=== PATIENT | female | born 1990 | race Caucasian/White ===

== ENCOUNTER 2018-02-15 21:37 | Emergency (ER) | payer OTHER ==
[2018-02-15 22:38] LABS: BASOPHILS # (AUTO) 0.1 10^3/uL (0.0-0.1); BASOPHILS % (AUTO) 0.5 %; EOSINOPHILS # (AUTO) 0.2 10^3/uL (0.0-0.7); EOSINOPHILS % (AUTO) 1.7 %; HGB - HEMOGLOBIN 13.6 g/dL (12.0-16.0); LYMPHOCYTES # (AUTO) 3.6 10^3/uL (1.5-3.5); LYMPHOCYTES % (AUTO) 36.7 %; MEAN CORPUSCULAR HEMOGLOBIN 28.2 pg (27.0-31.0); MEAN CORPUSCULAR HGB CONC 32.6 g/dL (32.0-36.0); MEAN CORPUSCULAR VOLUME 86.7 fL (81.0-99.0); MEAN PLATELET VOLUME 7.2 fL (7.9-10.8); MONOCYTES # (AUTO) 0.8 10^3/uL (0.0-1.0); NEUTROPHILS # (AUTO) 5.3 10^3/uL (1.5-6.6); NEUTROPHILS % (AUTO) 53.1 %; PLT - PLATELET COUNT 251 10^3/uL (130-450); RED BLOOD COUNT 4.81 10^6/uL (4.20-5.40); RED CELL DISTRIBUTION WIDTH 13.1 % (12.0-15.0); WHITE BLOOD COUNT 9.9 x10^3/uL (4.8-10.8)
[2018-02-15 22:44] LABS: BILIRUBIN,URINE NEGATIVE (NEGATIVE); GLUCOSE, URINE (UA) NEGATIVE (NEGATIVE); KETONES,URINE (UA) NEGATIVE (NEGATIVE); LEUKOCYTE ESTERASE, URINE NEGATIVE (NEGATIVE); NITRITE,URINE NEGATIVE (NEGATIVE); OCCULT BLOOD,URINE LARGE (NEGATIVE); PROTEIN,URINE NEGATIVE (NEGATIVE); UROBILINOGEN,URINE 0.2 (NORMAL) E.U./dL (NORMAL)
[2018-02-15 22:45] LABS: CLARITY,URINE HAZY (CLEAR)
[2018-02-15 22:50] LABS: BACTERIA,URINE Rare /HPF (None Seen); RBC,URINE TNTC /HPF (0-5); SQUAMOUS EPITHELIAL CELL,UR RARE Squamous (<= Few)
[2018-02-15 22:59] LABS: ALBUMIN 4.2 g/dL (3.2-5.5); ALBUMIN/GLOBULIN RATIO 1.2 (1.0-2.2); BILIRUBIN,TOTAL 0.9 mg/dL (0.2-1.0); CALCIUM 9.3 mg/dL (8.5-10.3); CREATININE 0.7 mg/dL (0.4-1.0); TOTAL PROTEIN 7.6 g/dL (6.7-8.2)
--- NOTE | 2018-02-16 00:10 | Ultrasound Preliminary Report ---
Exam: US OB FIRST TRIMESTER IMPRESSION: 1. Cystic structure within the lower uterine segment without pole or yolk sac. This is suspicio us for a low-lying gestational sac versus in progress. 2. Normal ovaries. [facility] SITE ID: [id number]
--- NOTE | 2018-02-16 00:11 | Ultrasound Report ---
EXAM: FIRST TRIMESTER OBSTETRIC ULTRASOUND (Less than 11 weeks) EXAM DATE: 02/15/2018 10:52 PM. CLINICAL HISTORY: Preg vag bleeding. LMP: 12/15/2017. COMPARISONS: None. TECHNIQUE: Transabdominal ultrasound examination with static image documentation. CLINICAL DATES: EGA 8 weeks 6 days with LISA 09/21/2018 based on LMP/prior ultrasound/other. ASSESSMENT: Gestational Sac: Cystic structure within the lower uterine segment with a mean diameter of 10.6 mm co rresponding to 5 weeks 1 day and presumably representing a gestational sac. . No pole or yolk sac is seen. MATERNAL STRUCTURES: Uterus: Anteverted. Unremarkable. Cervix: Closed. Right Ovary/Adnexa: Unremarkable. The ovary measures 2.2 x 1.3 x 2.5 cm, volume cc. Left Ovary/Adnexa: Unremarkable. The ovary measures 3.1 x 2 x 2.5 cm, volume cc. Free Fluid: None. Other: None. IMPRESSION: 1. Cystic structure within the lower uterine segment without pole or yolk sac. This is suspicio us for a low-lying gestational sac versus in progress. 2. Normal ovaries. [facility] Referring Provider Line: [phone] SITE ID: [id number]
--- NOTE | 2018-02-16 00:40 | ED Physician Documentation ---
PD HPI FEMALE - Stated complaint Stated Complaint: FEMALE /8 WK OB - Chief complaint Chief Complaint: Abd Pain - History obtained from History obtained from: Patient, Family - History of Present Illness Timing - onset: Yesterday Timing - details: Gradual onset, Still present Associated symptoms: Pelvic pain, Vaginal bleeding Contributing factors: [employer] History: G (1), P (0) Similar symptoms before: Has not had sx before Recently seen: Not recently seen - Additional information Additional information: patient is a 27 year old female approximately 8 weeks by dates who is presenting to the emergency department for vaginal bleeding and pelvic pain. patient states that the symptoms started yesterday with some spotting. Patient talked to her doctor who had her get a blood draw to check the beta hcg. Patient states that tonight the bleeding became worse so she came to the emergency department for evaluation. Review of Systems Ten Systems: 10 systems reviewed and negative GI: denies: Nausea, Vomiting : reports: Vaginal bleeding. denies: Dysuria, Frequency PD PAST MEDICAL HISTORY - Past Medical History Past Medical History: No - Past Surgical History Past Surgical History: Yes Ortho: ACL reconstruction, Spine surgery HEENT: Myringotomy (tubes) - Present Medications Home Medications: Ambulatory Orders Medication Instructions Recorded Confirmed Cyclobenzaprine [Flexeril] 10 mg PO TID PRN #20 tablet 04/16/16 Ethinyl Estradiol/Drospirenone 04/16/16 [Loryna 3 mg-0.02 mg Tablet] Hydrocodone/Acetaminophen 1 - 2 each PO Q6H PRN #14 tablet 04/16/16 [Hydrocodon-Acetaminophen 5-325] - Allergies Allergies/Adverse Reactions: Allergies Allergy/AdvReac Type Severity Reaction Status Date / Time amoxicillin trihydrate * Allergy Rash Verified 02/15/18 21:42 [From Augmentin] potassium clavulanate * Allergy Rash Verified 02/15/18 21:42 [From Augmentin] Sulfa (Sulfonamide Allergy Rash Verified 02/15/18 21:42 Antibiotics) - Social History Does the pt smoke?: No Smoking Status: Never smoker Does the pt drink ETOH?: Yes Does the pt have substance abuse?: No - Immunizations Immunizations are current?: Yes - POLST Patient has POLST: No PD ED PE NORMAL - Vitals Vital signs reviewed: Yes - General General: Alert and oriented X 3, Well developed/nourished - HEENT HEENT: Atraumatic, PERRL - Cardiac Cardiac: RRR - Respiratory Respiratory: No respiratory distress - Abdomen Abdomen: Soft - Derm Derm: Normal color, Warm and dry, No rash - Extremities Extremities: No deformity - Neuro Neuro: Alert and oriented X 3 Eye Opening: Spontaneous Motor: Obeys Commands Verbal: Oriented GCS Score: 15 Results - Vitals Vitals: Vital Signs - 24 hr 02/15/18 02/15/18 02/16/18 21:38 23:17 00:40 Temperature 36.8 C 36.8 C Heart Rate 106 H 82 89 Respiratory 18 18 16 Rate Blood Pressure 136/84 H 125/79 121/69 O2 Saturation 100 100 99 Oxygen O2 Source Room air - Labs Labs: Laboratory Tests 02/15/18 02/15/18 02/15/18 22:18 22:21 22:21 WBC 9.9 RBC 4.81 Hgb 13.6 Hct 41.7 MCV 86.7 MCH 28.2 MCHC 32.6 RDW 13.1 Plt Count 251 MPV 7.2 L Neut # 5.3 Lymph # 3.6 H [place] # 0.8 Eos # 0.2 Baso # 0.1 Absolute Nucleated RBC 0.00 Nucleated RBC % 0.0 Sodium 135 Potassium 3.3 L Chloride 101 Carbon Dioxide 26 Anion Gap 8.0 BUN 14 Creatinine 0.7 Estimated GFR (MDRD) 100 Glucose 85 Calcium 9.3 Total Bilirubin 0.9 AST 22 ALT 14 Alkaline Phosphatase 71 Total Protein 7.6 Albumin 4.2 Globulin 3.4 Albumin/Globulin Ratio 1.2 Lipase 27 HCG, Quant Urine Color YELLOW Urine Clarity HAZY Urine pH 7.0 Ur Specific [place] <=1.005 Urine Protein NEGATIVE Urine Glucose (UA) NEGATIVE Urine Ketones NEGATIVE Urine Occult Blood LARGE H Urine Nitrite NEGATIVE Urine Bilirubin NEGATIVE Urine Urobilinogen 0.2 (NORMAL) Ur Leukocyte Esterase NEGATIVE Urine RBC TNTC H Urine WBC 0-3 Ur Squamous Epith Cells RARE Squamous Urine Bacteria Rare Ur Microscopic Review INDICATED Urine Culture Comments NOT INDICATED Blood Type 02/15/18 02/15/18 22:21 22:21 WBC RBC Hgb Hct MCV MCH MCHC RDW Plt Count MPV Neut # Lymph # [place] # Eos # Baso # Absolute Nucleated RBC Nucleated RBC % Sodium Potassium Chloride Carbon Dioxide Anion Gap BUN Creatinine Estimated GFR (MDRD) Glucose Calcium Total Bilirubin AST ALT Alkaline Phosphatase Total Protein Albumin Globulin Albumin/Globulin Ratio Lipase HCG, Quant 96595.00 Urine Color Urine Clarity Urine pH Ur Specific [place] Urine Protein Urine Glucose (UA) Urine Ketones Urine Occult Blood Urine Nitrite Urine Bilirubin Urine Urobilinogen Ur Leukocyte Esterase Urine RBC Urine WBC Ur Squamous Epith Cells Urine Bacteria Ur Microscopic Review Urine Culture Comments Blood Type B POSITIVE - Rads (name of study) pelvic ultrasound Radiology: Final report received (low lying yoke sac, likely demise) PD MEDICAL DECISION MAKING - ED course Complexity details: reviewed old records, reviewed results, re-evaluated patient , considered differential, d/w patient, d/w family ED course: Patient was seen and examined at bedside. IV access was gained and labs were drawn. Patient's urine was collected. Imaging was ordered. patient declined any pain medication at this time. When patient returned from imagine the results were reviewed. Patient's findings were likely secondary to demise. patient and were made aware of the findings. Patient was given detailed discharge and follow up instructions. Patient required no further work up and was stable for discharge with close outpatient follow up. Departure - Departure Disposition: 01 Home, Self Care Clinical Impression: Miscarriage, threatened, early Condition: Stable Instructions: ED Miscarriage Poss Follow-Up: Mary Ann Vail MD [Primary Care Provider] - Tomorrow Comments: Your symptoms today are likely being caused by a miscarriage. You will likely bleed for the next few days and may pass some tissue. You can take tylenol as needed for pain. You should still follow up with your doctor tomorrow and get your blood draw on sat. You should return to the emergency department for dizziness, syncope, uncontrollable bleeding, new worsening or uncontrollable symptoms. Discharge Date/Time: 02/16/18 00:47
[2018-02-16 00:41] VITALS: BP 121/69
== END 2018-02-16 00:47 | disposition home or self-care (01) ==
LOC: ED 21:37
DX: O20.0 Threatened abortion (principal); Z3A.08 8 weeks gestation of pregnancy
CPT/HCPCS: 36415; 76801; 80053; 81001; 81003; 83690; 84702; 85025; 86900; 86901; 87086; 99283

== ENCOUNTER 2020-08-26 07:18 | Emergency (ER) | payer MEDICAID, OTHER ==
[2020-08-26] MEDS ORDERED: SODIUM CHLORIDE 0.9% 1,000 ML IV STA (07:38)
[2020-08-26] MEDS ORDERED: LOPERAMIDE 2 MG CAPSULE PO STA ×2 (07:38→07:41)
--- NOTE | 2020-08-26 07:42 | ED Physician Documentation ---
PD HPI ABD PAIN - Stated complaint Stated Complaint: DAIRRHEA - Chief complaint Chief Complaint: Abd Pain - History obtained from History obtained from: Patient - Additional information Additional information: G3, P1 at 14 weeks gestation presents with diarrhea, cramps and nausea without vomiting for the last 24 hours. It sounds like her may have had a mild similar illness. No recent travel or camping. T-max 99. Review of Systems Ten Systems: 10 systems reviewed and negative Constitutional: denies: Fever, Chills Nose: denies: Rhinorrhea / runny nose, Congestion Throat: denies: Sore throat Cardiac: denies: Chest pain / pressure, Palpitations Respiratory: denies: Dyspnea, Cough PD PAST MEDICAL HISTORY - Past Medical History Past Medical History: No - Past Surgical History Past Surgical History: Yes Ortho: ACL reconstruction, Spine surgery HEENT: Myringotomy (tubes) - Present Medications Home Medications: Ambulatory Orders Medication Instructions Recorded Confirmed No Known Home Medications 08/26/20 08/26/20 - Allergies Allergies/Adverse Reactions: Allergies Allergy/AdvReac Type Severity Reaction Status Date / Time amoxicillin trihydrate * Allergy Rash Verified 08/26/20 07:28 [From Augmentin] potassium clavulanate * Allergy Rash Verified 08/26/20 07:28 [From Augmentin] Sulfa (Sulfonamide Allergy Rash Verified 08/26/20 07:28 Antibiotics) - Social History Does the pt smoke?: No Smoking Status: Never smoker Does the pt drink ETOH?: Yes Does the pt have substance abuse?: No - Immunizations Immunizations are current?: Yes - POLST Patient has POLST: No PD ED PE NORMAL - Vitals Vital signs reviewed: Yes - General General: Alert and oriented X 3, No acute distress - Respiratory Respiratory: No respiratory distress - Abdomen Abdomen: Normal bowel sounds, Soft, Non tender, Other (Bedside ultrasound demonstrates single live intrauterine with heart rate of about 170.) - Neuro Neuro: Alert and oriented X 3, Normal speech Results - Vitals Vitals: Vital Signs - 24 hr 08/26/20 07:25 Temperature 36.0 C L Heart Rate 97 Respiratory 20 Rate Blood Pressure 118/77 O2 Saturation 100 Oxygen O2 Source Room air - Labs Labs: Laboratory Tests 08/26/20 08/26/20 07:43 07:45 Sodium 136 Potassium 3.1 L Chloride 103 Carbon Dioxide 21 Anion Gap 12.0 BUN 5 L Creatinine 0.7 Estimated GFR (MDRD) 98 Glucose 103 H Calcium 8.9 Total Bilirubin 0.8 AST 16 ALT 13 Alkaline Phosphatase 70 Total Protein 7.0 Albumin 3.7 Globulin 3.3 Albumin/Globulin Ratio 1.1 Lipase 34 Nasal Adenovirus (PCR) NOT DETECTED Nasal B. parapertussis DNA (PCR) NOT DETECTED Nasal Coronavir 229E PCR NOT DETECTED Nasal Coronavir HKU1 PCR NOT DETECTED Nasal Coronavir NL63 PCR NOT DETECTED Nasal Coronavir OC43 PCR NOT DETECTED Nasal Enterovir/Rhinovir PCR NOT DETECTED Nasal Influenza B PCR NOT DETECTED Nasal Influenza A PCR NOT DETECTED Nasal Parainfluen 1 PCR NOT DETECTED Nasal Parainfluen 2 PCR NOT DETECTED Nasal Parainfluen 3 PCR NOT DETECTED Nasal Parainfluen 4 PCR NOT DETECTED Nasal RSV (PCR) NOT DETECTED Nasal B.pertussis DNA PCR NOT DETECTED Nasal C.pneumoniae (PCR) NOT DETECTED Jose Human Metapneumo PCR NOT DETECTED Nasal M.pneumoniae (PCR) NOT DETECTED Nasal SARS-CoV-2 (PCR) NOT DETECTED PD MEDICAL DECISION MAKING - ED course ED course: 30-year-old woman with diarrhea, cramps, she is 14 weeks . Abdominal exam is benign and baby looking okay on ultrasound. Feeling better after IV fluids. Labs notable for negative viral panel and some mild hypokalemia repl eted orally. Passed a p.o. challenge. Departure - Departure Disposition: 01 Home, Self Care Clinical Impression: Hypokalemia Diarrhea Qualifiers: Diarrhea type: presumed infectious Qualified Code(s): R19.7 - Diarrhea, unspecified Condition: Good Record reviewed to determine appropriate education?: Yes Instructions: ED Diarrhea Viral Comments: Return if Not better in about 24 hours, anytime if worsening, or if you develop new or worrisome symptoms.
[2020-08-26 08:28] LABS: ALBUMIN 3.7 g/dL (3.2-5.5); ALBUMIN/GLOBULIN RATIO 1.1 (1.0-2.2); BILIRUBIN,TOTAL 0.8 mg/dL (0.2-1.0); CALCIUM 8.9 mg/dL (8.5-10.3); CREATININE 0.7 mg/dL (0.4-1.0)
[2020-08-26] MEDS ORDERED: POTASSIUM CHLORIDE 20 MEQ TABLET PO STA (08:35)
[2020-08-26 08:55] LABS: C. PNEUMONIAE- RESP PCR PANEL NOT DETECTED
[2020-08-26 09:15] VITALS: BP 105/62
== END 2020-08-26 09:16 | disposition home or self-care (01) ==
LOC: ED 07:18
DX: O99.891 Other specified diseases and conditions complicating pregnancy (principal); E87.6 Hypokalemia; R19.7 Diarrhea, unspecified; Z3A.14 14 weeks gestation of pregnancy
CPT/HCPCS: 0202U; 36415; 80053; 83690; 96360; 99283; A9270

== ENCOUNTER 2022-03-29 16:28 | Emergency (ER) | payer MEDICAID ==
--- NOTE | 2022-03-29 17:05 | XRAY Report ---
PROCEDURE: Foot 3 View RT INDICATIONS: Trauma TECHNIQUE: 3 views of the foot were acquired. COMPARISON: None. FINDINGS: Bones: No acute fractures or dislocations. No suspicious bony lesions. Soft tissues: Nonspecific soft tissue edema is seen at the dorsum of the foot. IMPRESSION: No acute osseous abnormality. If there is clinical concern or persistent symptoms, additional imaging such as repeat radiographs or advanced imaging (e.g. CT, MRI) may be helpful for further evaluation. Reviewed by: Dwight Singleton MD on 03/29/2022 5:04 PM PDT Approved by: Dwight Singleton MD on 03/29/2022 5:04 PM PDT Station ID: [id number]
--- NOTE | 2022-03-29 19:10 | ED Physician Documentation ---
History of Present Illness - Stated complaint Stated Complaint: GLF RT FOOT INJ - Chief complaint Chief Complaint: Trauma Ext - History obtained from History obtained from: Patient - History of Present Illness Timing: Today Pain level max: 6 Pain level now: 5 - Additonal information Additional information: 31-year-old female presents to the emergency department with a right foot injury that occurred at home today. She stepped on a child's toy and injured the right foot. Worse with walking, better with rest. Has not taken anything for pain. Review of Systems Constitutional: denies: Fever Neurologic: denies: Headache, Head injury PD PAST MEDICAL HISTORY - Past Medical History Past Medical History: No - Past Surgical History Past Surgical History: Yes Ortho: ACL reconstruction, Spine surgery HEENT: Myringotomy (tubes) - Present Medications Home Medications: Ambulatory Orders Medication Instructions Recorded Confirmed No Known Home Medications 08/26/20 03/29/22 - Allergies Allergies/Adverse Reactions: Allergies Allergy/AdvReac Type Severity Reaction Status Date / Time amoxicillin trihydrate * Allergy Rash Verified 03/29/22 16:32 [From Augmentin] potassium clavulanate * Allergy Rash Verified 03/29/22 16:32 [From Augmentin] Sulfa (Sulfonamide Allergy Rash Verified 03/29/22 16:32 Antibiotics) - Social History Does the pt smoke?: No Smoking Status: Never smoker Does the pt drink ETOH?: Yes Does the pt have substance abuse?: No - Immunizations Immunizations are current?: Yes - POLST Patient has POLST: No PD ED PE NORMAL - Vitals Vital signs reviewed: Yes - General General: Alert and oriented X 3, No acute distress - Derm Derm: Warm and dry - Extremities Extremities: Other (R foot - Tender to palpation over the midfoot. no deformity. no swelling or ecchymosis. NVI) - Neuro Neuro: Alert and oriented X 3 Results - Vitals Vitals: Vital Signs - 24 hr 03/29/22 19:16 Temperature 36.6 C Heart Rate 81 Respiratory 16 Rate Blood Pressure 133/79 H O2 Saturation 99 Oxygen O2 Source Room air - Rads (name of study) R foot xray Radiology: Final report received, EMP read contemporaneously, See rad report PD MEDICAL DECISION MAKING - ED course Complexity details: reviewed results, considered differential, d/w patient ED course: Patient with a right foot injury after stepping on a child's toy. No acute findings on x-ray. We will treat conservatively as a sprain. Patient is neurovascular intact. We will have her bear weight as tolerated and follow up with her doctor for further care. Patient counseled regarding signs and symptoms for which I believe an urgent reevaluation would be needed. Patient with good understanding and agreement to plan. Patient comfortable going home at this time. Departure - Departure Disposition: Home, Self Care Clinical Impression: Right foot sprain Qualifiers: Encounter type: initial encounter Qualified Code(s): S93.601A - Unspecified sprain of right foot, initial encounter Condition: Good Instructions: ED Sprain Foot Follow-Up: ANDREA YARBROUGH [Primary Care Provider] - Within 1 week Comments: Your x-ray does not show any acute abnormalities today. You may bear weight as tolerated. You may use Motrin or Tylenol as needed for pain. Return if you worsen. Discharge Date/Time: 03/29/22 19:16
[2022-03-29] MEDS: ACETAMINOPHEN 325 MG TABLET PO STA (19:11)
[2022-03-29 19:17] VITALS: BP 133/79
== END 2022-03-29 19:16 | disposition home or self-care (01) ==
LOC: ED 16:28
DX: S93.601A Unspecified sprain of right foot, initial encounter (principal); W22.8XXA Striking against or struck by other objects, initial encounter; Y92.009 Unspecified place in unspecified non-institutional (private) residence as the place of occurrence of the external cause
CPT/HCPCS: 73630; 99282; 99283; A9270